=== PATIENT | male | born 1960 | race Caucasian/White ===

== ENCOUNTER 2016-05-15 21:42 | Emergency (ER) | payer OTHER ==
--- NOTE | 2016-05-15 21:51 | EDPHY ---
H & P Time Seen by Provider: 05/15/16 21:47 HPI/ROS: CHIEF COMPLAINT: Propane exposure to left hand HISTORY OF PRESENT ILLNESS: This patient is a 56 year old male arriving by EMS after his left hand was exposed to liquid propane while fixing the valves on a propane tank this evening. He states that he forgot to shut one of the valves off, causing the cold gas to envelop the second and third digit of his hand when he attempted to stop transmission of the gas. He experienced severe pain at the time of the energy and reports cold and sensory deficits to his fingers. Upon arrival, he complains of moderate pain and diffuse swelling to his left hand. The pain has subsided and is minimal now. Sensation normal. He has no additional complaints. Denies any pertinent medical history. REVIEW OF SYSTEMS: No numbness, weakness, excessive bleeding, syncopal episode, other injury. Past Medical/Surgical History: Denies. Social History: Lives in [place]. Physical Exam: Alert and oriented, no acute distress Left hand: Mild diffuse swelling of left hand; blisters between third and fourth digits at the level of the PIP. Fingers are warm. Capillary refills is brisk. Radial pulse 2+. Neuro: Motor and sensory intact. Range of motion of all digits, limited due to swelling. Vascular: Capillary refill brisk distally Constitutional: Initial Vital Signs Temperature (C) 36.6 C 05/15/16 21:58 Heart Rate 84 05/15/16 21:58 Respiratory Rate 16 05/15/16 21:58 Blood Pressure 174/110 H 05/15/16 21:58 O2 Sat (%) 96 05/15/16 21:58 O2 Delivery Mode Room Air Allergies/Adverse Reactions: No Known Allergies Allergy (Unverified 05/15/16 22:08) Home Medications: Medication Instructions Recorded NK [No Known Home Meds] 05/15/16 Medical Decision Making - Diagnostics Imaging: Imaging Impressions Hand X-Ray 05/15/16 21:54 Impression: No acute fracture. X-ray of the left hand reviewed by myself and is normal. Radiologist impression is pending at this time. Procedures: Procedure: Splint placement. A volar wrist splint was applied to the left hand by the tech. After application of the splint I returned and re-examined the patient. The splint was adequately immobilizing the joint and distal to the splint the patient's circulation and sensation was intact. ED Course/Re-evaluation: This 56 year old male presents with what appears to be frostbite to the second and third digits of his left hand secondary to exposure to liquid propane tonight. He complains of pain to the site of the exposure. On exam, there is no evidence of high pressure injury; there is no entrance/exit wound. He does have blisters and mild discoloration of second and third digits with diffuse swelling to the hand. Will proceed with x-ray of the left hand, continue to warm -up the hand and reevaluate. Plan to discuss the case with poison control. I discussed imaging results with the patient and plan to discharge home with follow-up at wound care clinic this week. He is agreeable to this. Repeat hand exam is unchanged. He is given Tylenol and Ibuprofen instructions and customary return precautions. - Data Points Medications Given: Discontinued Medications Diphtheria/Tetanus/Acell Pertussis (Boostrix) 0.5 ml IM .ONCE ONE Stop: 05/15/16 22:10 Last Admin: 05/15/16 22:19 Dose: 0.5 ml Departure - Departure Disposition: Home, Routine, Self-Care Clinical Impression: Chemical exposure Frostbite Qualifiers: Encounter type: initial encounter Qualified Code(s): T33.90XA - Superficial frostbite of unspecified sites, initial encounter Condition: Good Instructions: Frostbite (ED) Additional Instructions: 1. Wear your splint until your discomfort subsides entirely. 2. Alternate 650mg Ibuprofen and 800mg Tylenol every 6 hours as needed for pain and swelling. 3. Follow-up at the wound care clinic for further evaluation within the next 3- 5 days. 4. Return to the Emergency Department with sensation changes to your hand or fingers, increased swelling, severe pain, or other serious concerns. Referrals: [facility] [Clinic] - As per Instructions Report Scribed for: Denita Chaparro Report Scribed by: Aniyah Fagan Date of Report: 05/15/16 Time of Report: 21:51 Physician Review and Approval Statement: 05/15/16 21:51 Portions of this note were transcribed by a medical underwriter. I personally performed a history, physical exam, medical decision making, and confirmed accuracy of information the transcribed note.
[2016-05-15 22:08] VITALS: BP 174/110; PULSE 84; RESP 16; TEMP 97.9; O2SAT 96
[2016-05-15] MEDS ORDERED: TDAP ADULT 0.5 ML INJ (BOOSTRIX) IM ONE (22:09)
== END 2016-05-15 22:40 | disposition home or self-care (01) ==
DX: T33.522A Superficial frostbite of left hand, initial encounter (principal); Z23 Encounter for immunization; Z77.098 Contact with and (suspected) exposure to other hazardous, chiefly nonmedicinal, chemicals; W93.11XA Contact with liquid air, initial encounter; Y99.8 Other external cause status; Y93.89 Activity, other specified